=== PATIENT | female | born 1950 | race Caucasian/White ===

== ENCOUNTER → 2017-01-03 | Outpatient (REF) | payer BC ==
[~2017-01-03] MED LIST: AMBI5TAB PO; HYDR12.55 PO
[2017-01-03 20:04] LABS: FOLATE 18.5 NG/ML
== END ==
LOC: M LAB REF 17:44
PROVIDERS: ATTEND Internal Medicine
DX: Z98.84 Bariatric surgery status (principal)

== ENCOUNTER → 2017-09-26 | Outpatient (REF) | payer BC ==
[2017-09-26 19:04] LABS: FOLATE > 24.0 NG/ML; VITAMIN B12 LEVEL 696 PG/ML
== END ==
LOC: M LAB REF 17:33
DX: G31.84 Mild cognitive impairment of uncertain or unknown etiology (principal)
CPT/HCPCS: 82746

== ENCOUNTER → 2018-05-04 | Outpatient (REF) | payer BC ==
[2018-05-04 13:56] LABS: IRON (FE) 65 UG/DL (50-170); PERCENT SATURATION 19.5 % (13.2-45.0); TOTAL IRON BINDING CAPACITY 334 UG/DL (250-450)
[2018-05-04 14:06] LABS: FOLATE 19.8 NG/ML; VITAMIN B12 LEVEL 604 PG/ML
[2018-05-07 14:08] LABS: VITAMIN B1 LEVEL WHOLE BLOOD 78.2 nmol/L (66.5-200.0)
== END ==
LOC: M LAB REF 12:23
DX: Z98.84 Bariatric surgery status (principal)

== ENCOUNTER → 2018-09-07 | Outpatient (REF) | payer BC | LOC: M LAB REF 10:26 | PROVIDERS: ATTEND Nurse Practitioner Adult Health | DX: R19.7 Diarrhea, unspecified (principal) ==

== ENCOUNTER → 2018-09-08 | Outpatient (REF) | payer BC ==
[2018-09-08 17:13] LABS: TOTAL PROTEIN 6.3 GM/DL (6.4-8.2)
[2018-09-08 17:15] LABS: EOS # 0.2 10^3/uL (0.0-0.50); EOS % 3.6 % (0.0-3.0); HEMATOCRIT 35.2 % (36.0-47.0); HEMOGLOBIN 11.1 g/dl (12.0-15.5); LYMPH # 1.3 10^3/uL (1.5-4.5); LYMPH % 31.2 % (24.0-44.0); MEAN CORPUSCULAR HEMOGLOBIN 27.9 pg (27.0-33.0); MEAN CORPUSCULAR HGB CONC 31.5 g/dl (32.0-36.5); MEAN CORPUSCULAR VOLUME 88.4 fl (80.0-96.0); MONO # 0.3 10^3/uL (0.0-0.8); MONO % 7.7 % (0.0-5.0); NEUTROPHILS # 2.3 10^3/uL (1.8-7.7); NEUTROPHILS % 56.3 % (36.0-66.0); PLATELET COUNT, AUTOMATED 254 10^3/uL (150-450); RED BLOOD COUNT 3.98 10^6/uL (4.00-5.40); WHITE BLOOD COUNT 4.1 10^3/uL (4.0-10.0)
[2018-09-12 15:27] LABS: ALPHA-1-GLOBULIN % 4.9 % (2.9-4.9); ALPHA-1-GLOBULINS 0.31 GM/DL (0.17-0.41); ALPHA-2-GLOBULINS % 11.1 % (7.1-11.8); BETA-1-GLOBULINS 0.45 GM/DL (0.28-0.60); BETA-1-GLOBULINS % 7.1 % (4.7-7.2); BETA-2-GLOBULINS 0.36 GM/DL (0.19-0.55); BETA-2-GLOBULINS % 5.7 % (3.2-6.5); GAMMA GLOBULIN % 17.2 % (11.1-18.8); GAMMA GLOBULINS 1.08 GM/DL (0.65-1.58)
== END ==
LOC: M LAB REF 16:37
PROVIDERS: ATTEND Nurse Practitioner Adult Health
DX: M85.80 Other specified disorders of bone density and structure, unspecified site (principal)

== ENCOUNTER → 2019-08-10 | Outpatient (REF) | payer BC ==
[2019-08-10 12:49] LABS: PERCENT SATURATION 13.4 % (13.2-45.0)
[2019-08-10 12:57] LABS: FOLATE 14.3 NG/ML
== END ==
LOC: M LAB REF 12:21
PROVIDERS: ATTEND Internal Medicine
DX: Z98.84 Bariatric surgery status (principal)

== ENCOUNTER → 2020-02-01 | Outpatient (REF) | payer BC ==
[2020-03-17 10:00] LABS: PERCENT SATURATION 19.5 % (13.2-45.0); URIC ACID 5.2 MG/DL (2.6-6.0)
== END ==
LOC: M LAB REF 14:51
PROVIDERS: ATTEND Internal Medicine
DX: M25.50 Pain in unspecified joint (principal); D50.9 Iron deficiency anemia, unspecified

== ENCOUNTER → 2020-08-06 | Outpatient (REF) | payer BC ==
[2020-08-06 16:47] LABS: FOLATE > 24.0 NG/ML; VITAMIN B12 LEVEL 537 PG/ML
== END ==
LOC: M LAB REF 15:29
PROVIDERS: ATTEND Family Medicine
DX: D50.9 Iron deficiency anemia, unspecified (principal); Z98.84 Bariatric surgery status

== ENCOUNTER → 2020-09-16 | Outpatient (REF) | payer BC | LOC: M LAB REF 16:28 | PROVIDERS: ATTEND Physician Assistant Medical | DX: Z01.89 Encounter for other specified special examinations (principal) ==

== ENCOUNTER → 2020-11-07 | Outpatient (CLI) | payer BC ==
[~2020-11-07] MED LIST changes: +ENAL5TA; +ESOM40CA35; +FLUTISP; +HYDR12CA; +VITA-259 PO; +VITMTA PO
== END ==
LOC: M LABSMTC 10:19
PROVIDERS: ATTEND Anesthesiology
DX: Z01.812 Encounter for preprocedural laboratory examination (principal); Z20.822 Contact with and (suspected) exposure to COVID-19

== ENCOUNTER 2020-11-12 09:08 | Day surgery (SDC) | payer BC ==
[~2020-11-12] VITALS: Ht 172.7 cm; Wt 121.1 kg
[~2020-11-12 09:08] MED LIST changes: +NS 1,000 ML IV ONE
[2020-11-12] MEDS ORDERED: propofoL 200 MG/20 ML VIAL As Ordered ONE (10:06)
--- NOTE | 2020-11-12 10:18 | ROOR ---
Patient Name: Vicki Epperson Procedure Date: 11/12/2020 9:57 AM Date of : 1950 Age: 70 Room: [facility] Gender: Female Note Status: Finalized Procedure: Total Colonoscopy to Cecum Indications: High risk colon cancer surveillance: Personal history of colonic polyps, Last colonoscopy: 2014 Providers: Derrick Cm MD Referring MD: YULIYA GOVEA JR, MD Requesting Provider: Medicines: Monitored Anesthesia Care Complications: No immediate complications. Procedure: Pre-Anesthesia Assessment: - The heart rate, respiratory rate, oxygen saturations, blood pressure, adequacy of pulmonary ventilation, and response to care were monitored throughout the procedure. The Colonoscope was introduced through the anus and advanced to the cecum, identified by appendiceal orifice and ileocecal valve. The colonoscopy was performed without difficulty. The patient tolerated the procedure well. The quality of the bowel preparation was excellent. Findings: The perianal and digital rectal examinations were normal. Non-bleeding internal hemorrhoids were found during retroflexion. The hemorrhoids were small and Grade I (internal hemorrhoids that do not prolapse). Multiple small and large-mouthed diverticula were found in the recto-sigmoid colon, sigmoid colon and descending colon. The exam was otherwise without abnormality on direct and retroflexion views. Impression: - Non-bleeding internal hemorrhoids. - Diverticulosis in the recto-sigmoid colon, in the sigmoid colon and in the descending colon. - The examination was otherwise normal on direct and retroflexion views. - No specimens collected. - The exam was otherwise normal to the cecum. Recommendation: - Patient has a contact number available for emergencies. The signs and symptoms of potential delayed complications were discussed with the patient. Return to normal activities tomorrow. Written discharge instructions were provided to the patient. - High fiber diet. - Discharge patient to home. - Continue present medications. - Repeat colonoscopy in 5 years for surveillance. - Return to referring physician. - The findings and recommendations were discussed with the patient's family. Procedure Code(s): --- Professional --- G0105, Colorectal cancer screening; colonoscopy on individual at high risk Diagnosis Code(s): --- Professional --- Z86.010, Personal history of colonic polyps K64.0, First degree hemorrhoids K57.30, Diverticulosis of large intestine without perforation or abscess without bleeding CPT copyright 2019 [employer]. All rights reserved. The codes documented in this report are preliminary and upon medical billing coder review may be revised to meet current compliance requirements. Derrick Cm MD Derrick Cm MD 11/12/2020 10:18:07 AM Electronically signed by Derrick Cm MD Number of Addenda: 0 Note Initiated On: 11/12/2020 9:57 AM Estimated Blood Loss: Estimated blood loss: none.
[2020-11-12 10:35] VITALS: BP 120/58
== END 2020-11-12 10:38 | disposition home or self-care (01) ==
LOC: M OPP 09:08
PROVIDERS: ATTEND Internal Medicine Gastroenterology
DX: Z12.11 Encounter for screening for malignant neoplasm of colon (principal); Z86.010 Personal history of colon polyps; K57.30 Diverticulosis of large intestine without perforation or abscess without bleeding; K64.0 First degree hemorrhoids; Z79.899 Other long term (current) drug therapy; Z88.1 Allergy status to other antibiotic agents; Z91.048 Other nonmedicinal substance allergy status; Z98.84 Bariatric surgery status

== ENCOUNTER → 2021-02-10 | Outpatient (REF) | payer BC ==
[~2021-02-10] MED LIST changes: -NS 1,000 ML IV ONE
[2021-02-10 17:37] LABS: FOLATE > 24.0 NG/ML; VITAMIN B12 LEVEL 361 PG/ML
== END ==
LOC: M LAB REF 16:18
PROVIDERS: ATTEND Internal Medicine
DX: Z01.89 Encounter for other specified special examinations (principal); Z98.84 Bariatric surgery status

== ENCOUNTER → 2021-03-16 | Outpatient (REF) | payer BC ==
[2021-03-16 16:46] LABS: INR 1.06; PROTHROMBIN TIME 14.2 SECONDS (12.7-14.5)
[2021-03-16 17:12] LABS: APPEARANCE, URINE CLEAR (CLEAR); BILIRUBIN, URINE AUTO NEGATIVE (NEGATIVE); BLOOD, URINE BLOOD NEGATIVE (NEGATIVE); COLOR, URINE YELLOW (YELLOW); GLUCOSE, URINE (UA) AUTO NEGATIVE (NEGATIVE); KETONE, URINE AUTO NEGATIVE (NEGATIVE); LEUKOCYTE ESTERASE, URINE AUTO NEGATIVE (NEGATIVE); NITRITE, URINE AUTO NEGATIVE (NEGATIVE); PROTEIN, URINE AUTO NEGATIVE (NEGATIVE); SPECIFIC GRAVITY URINE AUTO 1.017 (1.002-1.035); UROBILINOGEN, URINE AUTO 0.2 mg/dL (0.0-2.0)
[2021-03-16 17:16] LABS: BACTERIA, URINE AUTO NEGATIVE (NEGATIVE); MUCUS, URINE SMALL (NEGATIVE); RBC, URINE AUTO 0 /HPF (0-3); SQUAMOUS EPITHELIAL CELL UR AU 0 /HPF (0-6); WBC, URINE AUTO 0 /HPF (0-3)
== END ==
LOC: M LAB REF 16:14
PROVIDERS: ATTEND Internal Medicine
DX: Z01.818 Encounter for other preprocedural examination (principal)

== ENCOUNTER → 2022-10-24 | Outpatient (REF) | payer MEDICARE, BC ==
[~2022-10-24] MED LIST changes: +ENAL1TAB48; -ENAL5TA; +FLUT50SP17; -FLUTISP
== END ==
LOC: M LAB REF 17:41
PROVIDERS: ATTEND Internal Medicine
DX: L03.116 Cellulitis of left lower limb (principal)

== ENCOUNTER → 2022-11-01 | Outpatient (REF) | payer MEDICARE, BC ==
[2022-11-01 17:24] LABS: FOLATE > 24.0 NG/ML (>5.4); VITAMIN B12 LEVEL 317 PG/ML (211-911)
== END ==
LOC: M LAB REF 14:26
PROVIDERS: ATTEND Internal Medicine
DX: Z98.84 Bariatric surgery status (principal)

== ENCOUNTER → 2023-11-04 | Outpatient (REF) | payer MEDICARE ==
[~2023-11-04] MED LIST changes: -FLUT50SP17; +FLUTISP
[2023-11-04 18:05] LABS: FOLATE > 24.0 NG/ML (>5.4); VITAMIN B12 LEVEL 392 PG/ML (211-911)
== END ==
LOC: M LAB REF 16:48
PROVIDERS: ATTEND Internal Medicine
DX: Z98.84 Bariatric surgery status (principal)

== ENCOUNTER → 2024-04-17 | Outpatient (REF) | payer MEDICARE, BC ==
[2024-04-17 19:42] LABS: PHOSPHORUS LEVEL 3.1 MG/DL (2.4-5.1)
[2024-04-17 19:43] LABS: FOLATE > 24.0 NG/ML (>5.4)
[2024-04-17 19:44] LABS: IRON (FE) 53 UG/DL (50-170)
[2024-04-17 19:45] LABS: PERCENT SATURATION 15.5 % (13.2-45.0); TOTAL IRON BINDING CAPACITY 343 UG/DL (250-425)
[2024-04-17 19:51] LABS: FERRITIN 17.8 NG/ML (7.3-270.7); TOTAL 25(OH) VITAMIN D 46.3 NG/ML (20.0-100.0)
[2024-04-17 19:52] LABS: VITAMIN B12 LEVEL 406 PG/ML (211-911)
== END ==
LOC: M LAB REF 16:18
PROVIDERS: ATTEND Internal Medicine
DX: Z98.84 Bariatric surgery status (principal); Z79.899 Other long term (current) drug therapy

== ENCOUNTER → 2025-06-24 | Outpatient (REF) | payer MEDICARE, BC ==
[~2025-06-24] MED LIST changes: -AMBI5TAB PO; +HYDR12.510; -HYDR12CA; +ZOLP-532 PO
[2025-06-24 18:41] LABS: IRON (FE) 24 UG/DL (50-170); PERCENT SATURATION 7.7 % (13.2-45.0); PHOSPHORUS LEVEL 3.4 MG/DL (2.4-5.1)
[2025-06-24 18:44] LABS: VITAMIN B12 LEVEL 455 PG/ML (211-911)
[2025-06-24 18:46] LABS: TOTAL 25(OH) VITAMIN D 44.7 NG/ML (20.0-100.0)
== END ==
LOC: M LAB REF 17:15
PROVIDERS: ATTEND Internal Medicine
DX: Z98.84 Bariatric surgery status (principal); Z79.899 Other long term (current) drug therapy